=== PATIENT | female | born 1955 ===

== ENCOUNTER → 2019-06-03 | Day surgery (SDC) | payer OTHER ==
[~2019-06-03] MED LIST: CHLORTHALIDONE PO; FENOFIBRATE134 MG PO; MULTIVITAMINS1 EAC9 PO; OMEGA 3 1,0001 EACH PO; PEPCID40 MG PO; POLY119PG PO
== END | disposition home or self-care (01) ==
LOC: ADM 05-28 13:15 → CIR.AMB 06:15
DX: K64.8 Other hemorrhoids (principal); K64.4 Residual hemorrhoidal skin tags